=== PATIENT | female | born 1970 | race African-American/Black ===

== ENCOUNTER 2019-05-05 22:13 | Inpatient (IN) ==
[2019-05-05] MEDS ORDERED: ASPIRIN PO ONE (22:14)
[2019-05-05 22:49] LABS: BASO# 0.05 X1000 (0.0-0.2); BASO% 0.4 % (0.0-0.8); EOS# 0.15 X1000 (0.0-0.7); EOS% 1.2 % (0.0-10.0); HEMATOCRIT 38.2 % (37.0-47.0); HEMOGLOBIN 12.6 g/dL (12.0-16.0); IMM GRAN# 0.05 X1000 (0.0-0.04); IMM GRAN% 0.4 % (0.0-0.5); LYMPH# 3.33 X1000 (1.2-3.4); LYMPH% 27.2 % (20.5-51.1); MCH 24.8 PG (27-31); MONO# 0.85 X1000 (0.11-0.59); MONO% 6.9 % (1.7-9.3); MPV 9.5 FL (7.4-10.4); NEUT# 7.83 X1000 (1.4-6.5); NEUT% 63.9 % (42.2-75.2); PLT 436 X1000 (130-400); RBC 5.09 XMIL (4.2-5.4); RDW 13.9 % (11.5-14.5); WBC 12.26 X1000 (4.8-10.8)
[2019-05-05 23:09] LABS: AGAP 19; ALBUMIN 4.5 g/dL (3.5-5.0); ALKALINE PHOSPHATASE 105 U/L (32-104); BUN 8 mg/dL (8-22); CALCIUM 9.2 mg/dL (8.8-10.2); CHLORIDE 101 mmol/L (98-107); COSMO 278; CREATININE 0.9 mg/dL (0.5-0.9); ESTIMATED GFR > 60; GLUCOSE 209 mg/dL (70-104); GOT 16 U/L (10-30); GPT 10 U/L (10-36); SODIUM 137 mmol/L (136-145); TCO2 18 mmol/L (25-35); TOTAL PROTEIN 7.9 g/dL (6.3-8.3)
[2019-05-05] MEDS ORDERED: KLOR-CON PO ONE (23:35)
[2019-05-06] MEDS ORDERED: TORADOL IV ONE (01:20)
--- NOTE | 2019-05-06 02:22 | PROVIDER DOCUMENTATION ---
This chart was entered by Abbie Hess Scribe, acting as scribe for Evan Arvizu MD. HPI-Chest Pain - General Chief Complaint: Chest Pain Stated Complaint: Chest Pain Time Seen by Provider: 05/05/19 22:33 Source: patient Allergies/Adverse Reactions: Patient Allergies Allergy/AdvReac Type Severity Reaction Status Date / Time Sulfa (Sulfonamide Allergy Unknown Verified 05/05/19 22:35 Antibiotics) morphine AdvReac Mild JUMPING Verified 05/05/19 22:35 AND HALLUCINATIONS Home Medications: Home Medication List Medication Instructions Recorded Confirmed Last Taken Type Aspirin 81 mg PO DAILY 06/03/18 05/05/19 03/29/19 History Nifedipine E.r. [Procardia ER] 90 mg PO DAILY 06/03/18 05/05/19 03/29/19 History Omeprazole 40 mg PO DAILY 06/03/18 05/05/19 03/29/19 History Clonidine HCl 0.1 mg PO QHS 06/20/18 05/05/19 03/28/19 History - History of Present Illness-CP Nature of Presenting Problem: Patient is a 48 y/o female presenting to the ED today c/o chest pain. Patient reports onset of intermittent chest pain today around 1400. Patient reports episodes persisted lasting approximately 2-3 minutes each and around 1800, she took aspirin. Patient reports she continued to have intermittent chest pain accompanied by nausea. Patient reports pain radiates to back and "left ear". Patient denies SOB or diaphoresis. Patient sees Dr. Carrera for cardiology care for "heart blockage". Denies all other signs/symptoms. Location: reports: substernal Chest Pain Radiation: reports: back, other (left ear) Quality of Pain: reports: stabbing Onset/Duration: this afternoon Timing: still present, intermittent Associated Symptoms: reports: nausea. denies: shortness of breath Nitro Today/Relief: no nitro taken today Aspirin Treatment Today: 325 mg x 1 Prior Chest Pain/Cardiac Workup: reports: no prior chest pain Similar Symptoms Previously?: No Recently Seen Here or By Another Healthcare Provider: No Review of Systems - Adult - REVIEW OF SYSTEMS - ADULT Constitutional: denies: chills, fever Eyes: reports: no symptoms reported Ears, Nose, Mouth & Throat: reports: no symptoms reported Cardiovascular: reports: chest pain Respiratory: denies: cough, shortness of breath Gastrointestinal: reports: nausea. denies: abdominal pain, diarrhea, vomiting Genitourinary: reports: no symptoms reported Musculoskeletal: reports: no symptoms reported Integumentary: reports: no symptoms reported Neurological: reports: no symptoms reported Psychiatric: reports: no symptoms reported Endocrine: reports: no symptoms reported Hematologic/Lymphatic: reports: no symptoms reported Allergic/Immunologic: reports: no symptoms reported All Other Systems: Reviewed and Negative Past History - Adult - PAST MEDICAL HISTORY-ADULT Review of Records: reports: Old Records Reviewed, Nursing Assessment Review, Medications Reviewed, Social history reviewed & non-contributory. Major Childhood Illnesses: reports: denies history Cardiovascular: reports: HTN Respiratory: reports: denies history Gastrointestinal: reports: GERD, ulcer Obstetrical/Gynecological: reports: denies history Genitourinary: reports: denies history Musculoskeletal: reports: chronic pain, fibromyalgia Neurological: reports: headaches/migraines Endocrine/Immune: reports: denies history Other Conditions: reports: denies history - PRIOR SURGERIES/PROCEDURES Surgical/Procedure History: reports: EGD, - IMMUNIZATION STATUS Childhood Immunizations: See Nurse Assessment Flu Vaccine: See Nurse Assessment - FAMILY HISTORY Family History: CAD under 55yo (brother had open heart in 40s) Physical Exam-General - PHYSICAL EXAM-ADULT Initial Vital Signs Reviewed: Yes - CONSTITUTIONAL General Appearance: appears well, alert, no apparent distress - EYES Eyes: PERRL/EOMI, pink conjunctivae - HEAD, EARS, NOSE, MOUTH & THROAT HENMT: normocephalic/atraumatic, moist mucous membranes, other (bulging left TM) - NECK Neck: full range of motion, normal inspection - RESPIRATORY Respiratory: lungs clear, normal breath sounds, no respiratory distress, no accessory muscle use - CARDIOVASCULAR Cardiovascular: regular rate, rhythm, no edema - GASTROINTESTINAL (ABDOMEN) Abdominal Exam: non tender, soft - LYMPHATIC Lymphatic: no adenopathy - MUSCULOSKELETAL Back Exam: normal inspection Extremity: normal range of motion, normal gait, normal inspection, no pedal sachin a - SKIN Integumentary: normal color, normal turgor, warm/dry - NEUROLOGIC Neurologic: grossly normal, no motor/sensory deficits - PSYCHIATRIC Psych/Mental Status: normal mood/affect, normal thought content, normal thought process - HEART Score HEART Score: History: Slightly Suspicious HEART Score: ECG: Non-Specific Repolarization Disturbance/LBBB/PM HEART Score: Age: 45-65 Years HEART Score: Risk Factors for Atherosclerotic Disease: > or = 3 Risk Factors or History of Atherosclerotic Disease HEART Score: Troponin: < or = Normal Limit Total HEART Score:: 4 Progress - PLAN OF CARE/RESULTS Progress/Plan/Lab Results: Vital Signs - 8 hr 05/05/19 22:13 05/06/19 01:46 05/06/19 02:36 Temperature 98 F Pulse Rate 117 H 103 H 99 H Respiratory Rate 20 14 20 Blood Pressure 166/115 149/93 143/94 O2 Sat by Pulse Oximetry 98 99 100 Laboratory Results - last 24 hr 05/05/19 05/05/19 05/05/19 22:27 22:27 22:27 WBC 12.26 H RBC 5.09 Hgb 12.6 Hct 38.2 MCV 75.0 L MCH 24.8 L MCHC 33.0 RDW Std Deviation 13.9 Plt Count 436 H MPV 9.5 Immature Gran % (Auto) 0.4 Neut % (Auto) 63.9 Lymph % (Auto) 27.2 [place] % (Auto) 6.9 Eos % (Auto) 1.2 Baso % (Auto) 0.4 Immature Gran # (Auto) 0.05 H Neut # (Auto) 7.83 H Lymph # (Auto) 3.33 [place] # (Auto) 0.85 H Eos # (Auto) 0.15 Baso # (Auto) 0.05 D-Dimer, Quantitative Sodium 137 Potassium 3.0 L Chloride 101 Carbon Dioxide 18 L Anion Gap 19 BUN 8 Creatinine 0.9 Estimated GFR/1.73 m2 > 60 BUN/Creatinine Ratio 9 Glucose 209 H Calculated Osmolality 278 Calcium 9.2 Total Bilirubin 0.20 AST 16 ALT 10 Alkaline Phosphatase 105 H Creatine Kinase 131 Troponin T High Sens Total Protein 7.9 Albumin 4.5 Globulin 3.0 Albumin/Globulin Ratio 1.0 05/05/19 05/05/19 05/06/19 22:27 22:27 00:58 WBC RBC Hgb Hct MCV MCH MCHC RDW Std Deviation Plt Count MPV Immature Gran % (Auto) Neut % (Auto) Lymph % (Auto) [place] % (Auto) Eos % (Auto) Baso % (Auto) Immature Gran # (Auto) Neut # (Auto) Lymph # (Auto) [place] # (Auto) Eos # (Auto) Baso # (Auto) D-Dimer, Quantitative 0.27 Sodium Potassium Chloride Carbon Dioxide Anion Gap BUN Creatinine Estimated GFR/1.73 m2 BUN/Creatinine Ratio Glucose Calculated Osmolality Calcium Total Bilirubin AST ALT Alkaline Phosphatase Creatine Kinase Troponin T High Sens < 6 < 6 Total Protein Albumin Globulin Albumin/Globulin Ratio Orders Category Date Time Status Saline Loc NOW Care 05/05/19 22:14 Active cxr [CHEST-PORTABLE] [RAD] Stat Exams 05/05/19 22:14 Taken CBC WITH ELECTRONIC DIFF [HEME] Stat Lab 05/05/19 22:27 Completed CK PROFILE [SP CHEM] Stat Lab 05/05/19 22:27 Completed COMPREHENSIVE METABOLIC PANEL [CHEM] Stat Lab 05/05/19 22:27 Completed D-DIMER [COAG] Stat Lab 05/05/19 22:27 Completed TROPONIN T HIGH SENSITIVITY Stat Lab 05/05/19 22:27 Completed TROPONIN T HIGH SENSITIVITY Stat Lab 05/06/19 00:58 Completed 0.9% Sodium Chloride Inj [Ns] 1,000 ml Med 05/06/19 03:05 Discontinued IV 999 mls/hr Aspirin Med 05/05/19 22:14 Discontinued 325 mg PO NOW ONE Ketorolac [Toradol] Med 05/06/19 01:20 Discontinued 15 mg IV NOW ONE Potassium Chloride E.r. [Klor-Con] Med 05/05/19 23:35 Discontinued 20 meq PO NOW ONE EKG [EKG] Stat Ther 05/05/19 22:14 Ordered EKG [EKG] Stat Ther 05/06/19 01:36 Ordered At recheck, pt noted that her chest discomfort had improved but was still present. Admission discussed with pt but she refused saying that she understood the risks vs benefits of leaving AMA and wants to just follow up with Dr Carrera Wednesday. Pt was advised to return to ER if she changed her mind. Result Diagrams: 05/05/19 22:27 05/05/19 22:27 - EKG 1 Time of EKG reading by physician:: 22:18 EKG Read and Signed by:: Evan Arvizu EKG Interpretation (*Must complete 3 of following elements*): Abnormal Rate: 118 Rhythm: Sinus tachycardia QRS: PVC's, other (prolonged QT) - CONSULTS/PCP/HOSPITALIST Notification #1 *Consult/PCP/Hospitalist*: Dr Hill Time Discussed: 04:44 Consult Disposition: Admit Departure - Departure Date of Disposition Decision: 05/06/19 Time of Disposition Decision: 02:20 DIAGNOSIS: HTN (hypertension), Chest pain Disposition: AGAINST MEDICAL ADVICE 07 Certified Medical Emergency: Emergent Condition: Fair Additional Instructions: Follow up with your DR in 1-2 days, to ER sooner if worse. ED Follow Up Instructions: You have been treated by a care provider in the Emergency Department. These instructions are being provided to you so you can have an understanding of how to care for yourself upon discharge. Upon discharge from the Emergency Department, you are responsible for making arrangements for follow-up care by a physician of your choice. Take all prescribed medications as directed. Return to the Emergency Department immediately for any new or worsening symptoms. You may call the Physician Referral phone number at [phone] to obtain a list of Physicians who are taking new patients. Referrals and Follow-Ups: Albert Saini MD [Primary Care Provider] - - Critical Care Note This patient required my direct & personal management of CC.: No Attestation - Physician/ MILLI Attestation Patient care was provided by Advanced Practice Provider:: No The physician spent face to face time with patient:: Yes Advanced Practice Provider documentation review:: Supervising physician onsite and consulted in the evaluation and care of this patient. The physician did have a face to face encounter with the patient. This chart was documented by the indicated scribe, (Abbie Hess Scribe) and accurately reflects the services I performed and decisions made by me, Evan Arvizu MD, as attested by the provider's signature.
[2019-05-06] MEDS ORDERED: NS 1,000 ML IV ONE (03:05)
[2019-05-06] MEDS ORDERED: DEMEROL IV PRN (04:49)
--- NOTE | 2019-05-06 05:17 | EKG Report ---
Test Performed on : 05/06/2019 01:41:57 AM Test Reason : chest pain Blood Pressure : / mmHG Vent. Rate : 100 BPM Atrial Rate : 100 BPM P-R Int : 160 ms QRS Dur : 082 ms QT Int : 360 ms P-R-T Axes : 036 -04 035 degrees QTc Int : 464 ms Sinus rhythm. with occasional premature ventricular complexes. Otherwise normal ECG When compared with ECG of 05-MAY-2019 22:18, (Unconfirmed) No significant change was found Unconfirmed Result
--- NOTE | 2019-05-06 05:18 | EKG Report ---
Test Performed on : 05/05/2019 10:18:11 PM Test Reason : CP Blood Pressure : / mmHG Vent. Rate : 118 BPM Atrial Rate : 118 BPM P-R Int : 120 ms QRS Dur : 080 ms QT Int : 438 ms P-R-T Axes : 000 008 043 degrees QTc Int : 613 ms Sinus tachycardia. with frequent premature ventricular complexes. Prolonged QT Abnormal ECG When compared with ECG of 29-MAR-2019 12:00, (Unconfirmed) premature ventricular complexes. are now present Unconfirmed Result
[2019-05-06 06:29] LABS: BASO# 0.05 X1000 (0.0-0.2); BASO% 0.6 % (0.0-0.8); EOS# 0.11 X1000 (0.0-0.7); EOS% 1.2 % (0.0-10.0); HEMATOCRIT 36.9 % (37.0-47.0); IMM GRAN# 0.04 X1000 (0.0-0.04); IMM GRAN% 0.4 % (0.0-0.5); LYMPH# 2.36 X1000 (1.2-3.4); MCH 24.4 PG (27-31); MCHC 32.5 g/dL (33-37); MCV 75.2 FL (81-99); MONO% 8.8 % (1.7-9.3); MPV 9.3 FL (7.4-10.4); NEUT# 5.73 X1000 (1.4-6.5); PLT 419 X1000 (130-400); RBC 4.91 XMIL (4.2-5.4); RDW 13.9 % (11.5-14.5); WBC 9.09 X1000 (4.8-10.8)
--- NOTE | 2019-05-06 06:42 | EKG Report ---
Test Performed on : 05/06/2019 06:24:39 AM Test Reason : CP Blood Pressure : / mmHG Vent. Rate : 107 BPM Atrial Rate : 107 BPM P-R Int : 166 ms QRS Dur : 084 ms QT Int : 360 ms P-R-T Axes : 044 000 025 degrees QTc Int : 480 ms Sinus tachycardia. Otherwise normal ECG When compared with ECG of 06-MAY-2019 01:41, (Unconfirmed) premature ventricular complexes. are no longer present Unconfirmed Result
[2019-05-06] MEDS: ZOFRAN IV PRN ×2 (06:50→14:33)
[2019-05-06 07:18] LABS: AGAP 15; ALBUMIN 4.1 g/dL (3.5-5.0); ALKALINE PHOSPHATASE 98 U/L (32-104); BUN 7 mg/dL (8-22); CALCIUM 8.9 mg/dL (8.8-10.2); CHLORIDE 106 mmol/L (98-107); COSMO 280; CREATININE 0.7 mg/dL (0.5-0.9); ESTIMATED GFR > 60; GLUCOSE 119 mg/dL (70-104); GOT 14 U/L (10-30); GPT 10 U/L (10-36); POTASSIUM 3.5 mmol/L (3.5-5.1); SODIUM 141 mmol/L (136-145); TCO2 19 mmol/L (25-35); TOTAL PROTEIN 7.3 g/dL (6.3-8.3)
--- NOTE | 2019-05-06 07:45 | Diag Imaging Result Doc PS360 ---
EXAM: CHEST-PORTABLE HISTORY: CP TECHNIQUE: Single view COMPARISON: 06/03/2018 FINDINGS: The lungs are well expanded. The heart is not enlarged. The vessels are not distended. There are no infiltrates. There is scarring in the right lung base. No effusion identified. IMPRESSION: Negative exam. Electronically signed by Manuel Joseph 05/06/2019 7:43 AM
[2019-05-06] MEDS ORDERED: NITROGLYCERIN SL PRN (08:26)
[2019-05-06] MEDS ORDERED: TYLENOL PO PRN (08:26)
[2019-05-06] MEDS ORDERED: SALINE LOCK IV FLUID XX ONE (08:26)
[2019-05-06] MEDS ORDERED: LACTULOSE PO ONE (08:52)
[2019-05-06] MEDS ORDERED: CULTURELLE PO SCH (09:00)
[2019-05-06] MEDS ORDERED: ASPIRIN PO SCH ×2 (09:00)
[2019-05-06] MEDS ORDERED: LOVENOX SUBQ SCH (09:00)
[2019-05-06] MEDS ORDERED: ADALAT CC PO SCH (09:00)
[2019-05-06] MEDS ORDERED: PRILOSEC PO SCH (09:00)
[2019-05-06] MEDS ORDERED: MIRALAX PO SCH (09:15)
[2019-05-06] MEDS ORDERED: PERICOLACE PO SCH (09:15)
[2019-05-06 09:59] LABS: HEMOGLOBIN A1C 5.9 % (4.8-6.0)
[2019-05-06] MEDS: CARAFATE LIQUID PO SCH ×2 (10:13→14:33)
[2019-05-06] MEDS: FLEXERIL PO SCH ×4 (10:13→17:50)
--- NOTE | 2019-05-06 10:57 | HISTORY AND PHYSICAL ---
PRIMARY CARE PROVIDER: Dr. Saini. CHIEF COMPLAINT: Chest pain. HISTORY OF PRESENT ILLNESS: Ms. Elis Gonzales is a 48-year-old -[place] female with a medical history of gastroparesis, gastric ulcers, GERD, chronic constipation, hypertension, who comes in with complaints of chest pain. She has a history of 1 year ago in May she had a left heart catheterization performed because of complaints of chest pain and only had 30% documented as very minute coronary disease at that time felt like the chest pain was not cardiac related. She was treated medically. Today she states she has been having some of the symptoms on and off for about 3 weeks, but last night while she was eating salad, it was a sudden onset and it went from her epigastric region all the way up into her chest. She felt like it radiated into her back, both shoulders and into her jaw with some nausea and sweating, and she would not complete her meal. She said it lasted around 30 to 40 minutes and she had another onset this morning that did not last very long at all, but she also received Demerol for the pain. Further evaluating the chronic constipation, it has been since Wednesday, which means she has gone 5 days without a bowel movement. Her cardiac workup is negative so for. We did have an echocardiogram ordered, but this is likely all gastrointestinal-related secondary to the constipation and history of GERD. She states that her nocturnal GERD symptoms of having acid in her mouth has not happened for about 4 months now since she has been taking Prilosec on a regular basis so will assist with helping her constipation. PAST MEDICAL HISTORY: 1. GERD. 2. Gastroparesis. 3. Chronic constipation. 4. Hypertension. 5. Fibromyalgia. 6. History of diabetes mellitus type 2. SURGICAL HISTORY: 1. section. 2. EGD, 2015. 3. Left heart catheterization, May 2018. 4. Rectal fistula repair. SOCIAL HISTORY: Denies tobacco, alcohol, or illicit drug use. She is not . She has 1 child. Does not work. FAMILY HISTORY: Mother: No medical conditions. Father had prostate cancer and he had coronary artery disease diagnosed at 71. ALLERGIES: Sulfa and morphine. HOME MEDICATIONS: 1. Clonidine 0.1 mg p.o. nightly. 2. Aspirin 81 mg p.o. daily. 3. Flexeril 10 mg p.o. t.i.d. 4. Procardia ER 90 mg p.o. daily. 5. Omeprazole 40 mg p.o. daily. 6. Receives Depo-Provera. REVIEW OF SYSTEMS: Fourteen point review of systems are complete and all were negative except for those mentioned above in HPI. PHYSICAL EXAMINATION: VITAL SIGNS: Temperature 98.4 degrees, heart rate 101, respiratory rate 16, blood pressure 127/77, O2 saturation 98% on nasal cannula. GENERAL: Ms. Elis Gonzales is a 48-year-old -[place] female. She is in no acute distress. She is able answer questions appropriately. HEENT: Atraumatic, normocephalic. Pupils equal, round, reactive to light. Extraocular movements intact. Mucous membranes are moist. NECK: Trachea midline. CARDIOVASCULAR: S1, S2. Tachycardic rate and rhythm. No rubs, gallops, or murmurs. No lower extremity edema. Plus 2 dorsalis and radial pulses. Negative JVD or carotid bruits. PULMONARY: Clear to auscultation bilateral breath sounds. No accessory muscle use or work of breathing noted. GASTROINTESTINAL: Soft, nontender, nondistended. Positive bowel sounds x4. EXTREMITIES: Moves all extremities equally. Full range of motion. NEUROLOGIC: Alert and oriented x3. Follows commands. Sensory is intact. SKIN: Warm, dry, intact. LABORATORY DATA: White blood cells 9000, hemoglobin 12, hematocrit 36, platelet count 419,000. Sodium 141, potassium 3.5, BUN 7, creatinine 0.7 glucose 119, calcium 8.9, bilirubin 0.30, AST 14, ALT 10. CK was 131. Troponins have all been less than 6. Albumin 4.1. IMAGING: Chest x-ray negative exam. EKG at 22:14 last night: Sinus tachycardia with PVCs, rate 118, QTc was 613 and the QT which was 438. EKG at 01:36 this morning: Sinus rhythm. Rate was 100 QTc was 464. EKG at 06:17 this morning: Sinus tachycardia rate 107, QTc was 480. No more PVCs. ASSESSMENT AND PLAN: 1. Atypical chest pain, likely unrelated to a cardiac cause. Coronary artery disease only 30% per left heart catheterization that was performed May of 2018 with a preserved ejection fraction, at that time was felt chest pain was not cardiac-related. This is most likely gastrointestinal-related. 2. Gastroesophageal reflux disease. The patient's chest pain symptoms started after eating salad, and she has not had a bowel movement in 5 days. She has history of peptic ulcer disease as well so she is going to be continued on Prilosec but we are going to add Carafate, probiotics. 3. Chronic constipation without bowel movement in 5 days. MiraLAX, Obdulia-Colace, and then a 1 time dose of lactulose will be given. 4. Diabetes mellitus type 2 with hyperglycemia. She claims the diabetes had been resolved, so we will just get a hemoglobin A1c. Her blood glucose level this morning is much lower. 5. Hypertension. Continue home medications. 6. History of gastroparesis. 7. Fibromyalgia. 8. Deep venous thrombosis prophylaxis, Lovenox. Dictated by ANDRESSA Castillo for Moises Hunt MD cc: ANDRESSA Castillo MD
[2019-05-06] MEDS ORDERED: DULCOLAX PR ONE (13:49)
--- NOTE | 2019-05-06 14:20 | DISCHARGE SUMMARY ---
ADMISSION DATE: 05/06/2019 DISCHARGE DATE: 05/06/2019 ADMISSION DIAGNOSES: 1. Atypical chest pain, likely unrelated to cardiac cause, most likely caused by GI. 2. Gastroesophageal reflux disease. 3. Chronic constipation without bowel movement in 5 days. 4. Diabetes mellitus type 2 with hyperglycemia. 5. Hypertension. 6. History of gastroparesis. 7. Fibromyalgia. DISCHARGE DIAGNOSES: 1. Atypical chest pain, likely unrelated to cardiac cause, most likely caused by GI. 2. Gastroesophageal reflux disease. 3. Chronic constipation without bowel movement in 5 days. 4. Diabetes mellitus type 2 with hyperglycemia. 5. Hypertension. 6. History of gastroparesis. 7. Fibromyalgia. CONSULTATIONS: None. SURGERIES AND PROCEDURES: None. HOSPITAL COURSE: Ms. Elis Gonzales is a 48-year-old, -[place] female with a medical history of GERD, constipation and gastroparesis, who had not had a bowel movement in 5 days. Her original complaints was chest pain, but the way she described as it coming from her epigastric region and radiating up into her shoulders, neck and back with some nausea while she was eating and no bowel movement 5 days the chest pain was most likely related to this. She has had a left heart catheterization around a year ago, only showed 30%, and her cardiac enzymes are negative. Her EKG was negative. She was started on a bowel regimen to help her with her GERD and with her constipation. DISCHARGE VITAL SIGNS: Temperature 98.4 degrees, heart rate 101, respiratory rate 16, blood pressure 127/77, O2 saturation 98% on room air. DISCHARGE LAB DATA: White blood cells 9,000, hemoglobin 12, hematocrit 36, platelet count 419,000. D-dimer 0.27. Sodium 141, potassium 3.5, BUN 7, creatinine 0.7 glucose 119. Hemoglobin A1c was 5.9, calcium 8.9, bilirubin 0.30, AST 14, ALT 10. Troponin less than 6. Albumin 4.1. PERTINENT IMAGING: Chest x-ray, negative exam. EKGs, she had 3 of them; the first one sinus tach, rate 118; second one sinus tach, rate 100, QTc 464; and third one sinus tach, rate 107, QTc 480. DISCHARGE MEDICATIONS: 1. Omeprazole 40 mg p.o. daily. 2. Nicardipine 90 mg p.o. daily. 3. Flexeril 10 mg p.o. t.i.d. 4. Aspirin 81 mg p.o. daily. 5. Clonidine 0.1 mg p.o. nightly. PHYSICIAN FOLLOWUP: Dr. Jose. DISCHARGE ACTIVITY: As tolerated. DISCHARGE DIET: Heart healthy. DISCHARGE INSTRUCTIONS: If your condition changes, contact your physician and/or return to the emergency department. Changes may include, but are not limited to, shortness of breath, increased fatigue, excessive bleeding, unexplained weight loss or gain, unmanageable pain, signs or symptoms of infection. DISCHARGE DISPOSITION: Home. Dictated by ANDRESSA Castillo for Moises Hunt MD cc: ANDRESSA Castillo MD
[2019-05-06 16:47] VITALS: BP 145/84
[2019-05-06] MEDS ORDERED: FLEET ENEMA PR ONE (16:51)
[2019-05-06] MEDS ORDERED: CATAPRES PO SCH (21:00)
--- NOTE | 2019-05-07 02:20 | HISTORY AND PHYSICAL ---
ADDENDUM: Patient seen and examined by myself. Full note dictated and discussed with nurse practitioner. Patient presented with chest pain. Currently she notes that she is still having some pain, some nausea. Does have a longstanding history of GI issues. States that she also has been told she has diabetes in the past and was told to take metformin and then was told she no longer needed it. We are going to admit her to the hospital, rule out MN, follow her blood sugars. Further orders as needed. cc: Moises Hunt MD
--- NOTE | 2019-05-07 10:33 | ECHO REPORT ---
ORDER DATE: 05/06/2019 MEASUREMENTS: Septal thickness 1.5, left ventricular internal diameter in diastole 4.7, posterior wall thickness 1.1, left ventricular internal diameter in systole 2.9, aortic root 3.2, left atrium 4.0. SUMMARY: 1. Technically difficult study due to limited acoustic window quality. 2. The aortic valve is trileaflet and opens normally on 2-dimensional images. The peak gradient across the aortic valve is approximately 14 mmHg. Mitral and tricuspid valves are without evidence of structural abnormality, while pulmonic valve is not well demonstrated. The aortic root is normal in size. 3. Normal left ventricular chamber size with mild concentric left ventricular hypertrophy suggested. The estimated left ventricular ejection fraction appears to be at least 70%. There are no regional wall abnormalities evident. Left atrium is upper normal in size. The right atrium and right ventricle are normal in size, with grossly preserved right ventricular systolic function. 4. No pericardial effusion. 5. Appearance of inferior vena cava suggests normal central venous pressure. cc: Dakota Smith MD
--- NOTE | 2019-05-07 22:03 | DISCHARGE SUMMARY ---
ADMISSION DATE: 05/06/2019 DISCHARGE DATE: 05/06/2019 DISCHARGE DIAGNOSES: 1. Chest pain likely gastrointestinal related, resolved. 2. Hypertension. 3. Chronic reflux. 4. History of migraines. 5. Fibromyalgia. 6. Hypertensive urgency. BP 166/115 on admit and 143/94 on discharge. CONSULTATIONS: None. PROCEDURES: None. BRIEF HOSPITAL COURSE: Patient is a 48-year-old female who presented to the hospital with chest pain that appears to have resolved. She is currently in no distress. She states that she is feeling better. Oddly enough, she noted before her pain was gone that she was going home today at 6 o'clock regardless of any other circumstances. DISPOSITION: We are going to discharge her home. She will follow up outpatient with her primary care. Her symptoms appear to have resolved. Blood pressures are improved. cc: Moises Hunt MD
== END 2019-05-06 18:30 | disposition home or self-care (01) | DRG 392 ==
LOC: P.ED 22:13 → SUATTDRO 05-06 05:31 → P.MEDSURG 05-06 05:31
PROVIDERS: ATTEND Family Medicine